=== PATIENT | female | born 1955 | race Caucasian/White ===

== ENCOUNTER 2025-10-13 12:40 | Inpatient (IN) | payer MEDICARE ==
[~2025-10-13] VITALS: Ht 157.5 cm; Wt 81.6 kg
[2025-10-13 16:18] VITALS: BP 121/61; TEMP 98.1
[2025-10-13 16:57] VITALS: BP 121/61; TEMP 98.1
[2025-10-14] MEDS ORDERED: AMIO200T72 PO (15:38)
[2025-10-14] MEDS ORDERED: ASPI81TA31 PO (15:38)
[2025-10-14] MEDS ORDERED: HYDR-3980 PO (15:38)
[2025-10-14] MEDS ORDERED: DIGO250T PO (15:38)
[2025-10-14] MEDS ORDERED: HYDR1VIA2 IV (15:38)
[2025-10-14] MEDS ORDERED: MAG-55 PO (15:38)
[2025-10-14] MEDS ORDERED: SPIR25TA6 PO (15:38)
[2025-10-14] MEDS ORDERED: POLY17PO4 GT (15:38)
[2025-10-14] MEDS ORDERED: APIX5TAB PO (15:38)
[2025-10-14] MEDS ORDERED: AMIO200T6 PO (15:38)
[2025-10-14] MEDS ORDERED: MAGN400O6 PO (15:38)
[2025-10-14] MEDS ORDERED: PANT40TA2 PO (15:38)
[2025-10-14] MEDS ORDERED: ACET-3752 PO ×2 (15:38)
[2025-10-14] MEDS ORDERED: LORA2TAB95 PO (15:38)
[2025-10-14] MEDS ORDERED: METO50TA16 PO (15:38)
[2025-10-14] MEDS ORDERED: METH-806 PO (15:38)
[2025-10-14] MEDS ORDERED: ONDA4VIA5 IVP (15:38)
[2025-10-14] MEDS ORDERED: ATOR10TA PO (15:38)
[2025-10-14] MEDS ORDERED: DOCU100T2 PO (15:38)
[2025-10-14] MEDS: HYDROCODONE/APAP 10-325 MG TABLET PO PRN (17:56)
[2025-10-14] MEDS: METOPROLOL TARTRATE 50 MG TABLET PO SCH (17:56)
[2025-10-14] MEDS ORDERED: LORAZEPAM 1 MG TABLET PO PRN (18:00)
[2025-10-14] MEDS ORDERED: HYDROMORPHONE 1 MG/1 ML DISP.SYRIN IV PRN (18:00)
[2025-10-14] MEDS ORDERED: OXYCODONE HCL 5 MG TABLET PO PRN (18:30)
[2025-10-14] MEDS: GABAPENTIN 100 MG CAPSULE PO SCH (18:36)
[2025-10-14] MEDS: ACETAMINOPHEN 500 MG TABLET PO SCH (18:36)
[2025-10-14] MEDS: ATORVASTATIN 10 MG TABLET PO SCH (21:00)
[2025-10-14] MEDS: AMIODARONE HCL 200 MG TABLET PO SCH (21:00)
[2025-10-14] MEDS: APIXABAN 5 MG TABLET PO SCH (21:03)
[2025-10-14 21:19] VITALS: BP 99/41; TEMP 98.6; O2SAT 98
[2025-10-14] MEDS: OXYCODONE HCL 5 MG TABLET PO PRN (23:44)
[2025-10-15] MEDS: LORAZEPAM 0.5 MG TABLET PO PRN (03:14)
[2025-10-15] MEDS: HYDROMORPHONE 1 MG/1 ML DISP.SYRIN IV PRN (03:35)
[2025-10-15 05:50] VITALS: BP 113/45; TEMP 98.4; O2SAT 100
[2025-10-15] MEDS: PANTOPRAZOLE SODIUM 40 MG TABLET.DR PO SCH (06:28)
[2025-10-15] MEDS: PANTOPRAZOLE SODIUM 40 MG TABLET.DR PO ONE (06:35)
[2025-10-15 08:00] VITALS: BP 132/67; TEMP 98.3; O2SAT 99
[2025-10-15 08:01] LABS: PLATELET COUNT (AUTO) 197 K/uL (179-408); RED CELL DISTRIBUTION WIDTH 13.9 % (12.3-17.7); WHITE BLOOD COUNT (AUTO) 5.2 K/uL (3.8-11.8)
[2025-10-15 08:03] LABS: RED BLOOD CELL COUNT(AUTO) 2.48 MIL/uL (3.63-4.92)
[2025-10-15] MEDS: ASPIRIN 81 MG TAB.CHEW PO SCH (08:07)
[2025-10-15] MEDS: METHOCARBAMOL 500 MG TABLET PO SCH (08:07)
[2025-10-15] MEDS: SPIRONOLACTONE 25 MG TABLET PO SCH (08:07)
[2025-10-15] MEDS: DOCUSATE SODIUM 100 MG CAPSULE PO SCH (08:08)
[2025-10-15 08:26] LABS: CREATININE 0.5 mg/dL (0.6-1.3); SODIUM SERUM 139.0 mmol/L (136-145); UREA NITROGEN, BLOOD 4.0 mg/dL (7-18)
[2025-10-15] MEDS ORDERED: APIXABAN 5 MG TABLET PO SCH (09:00)
[2025-10-15 12:30] VITALS: O2SAT 99
[2025-10-15] MEDS ORDERED: DIGOXIN 250 MCG TABLET PO SCH (13:00)
[2025-10-15 17:00] VITALS: BP 121/44; TEMP 98.3; O2SAT 100
[2025-10-15 20:30] VITALS: BP 79/37; TEMP 98.8; O2SAT 98
[2025-10-15] MEDS: IV NORMAL SALINE 1000 ML BAG IV ONE (20:55)
[2025-10-15 21:05] LABS: PLATELET COUNT (AUTO) 216 K/uL (179-408); RED BLOOD CELL COUNT(AUTO) 2.59 MIL/uL (3.63-4.92); RED CELL DISTRIBUTION WIDTH 14.0 % (12.3-17.7); WHITE BLOOD COUNT (AUTO) 7.1 K/uL (3.8-11.8)
[2025-10-15 21:11] LABS: CREATININE 0.4 mg/dL (0.6-1.3); SODIUM SERUM 138 mmol/L (136-145); UREA NITROGEN, BLOOD 5 mg/dL (7-18)
[2025-10-15 21:30] VITALS: BP 110/46; TEMP 98.7; O2SAT 99
[2025-10-16] VITALS (8 sets, daily range): BP systolic 113–130; BP diastolic 46–65; TEMP 98.4–99.7; O2SAT 96–99
[2025-10-16] MEDS ORDERED: REMEDY ESSENTIAL ZINC PASTE 113 GM TOP PRN ×2 (08:45→09:45)
[2025-10-16] MEDS: MAGNESIUM HYDROXIDE 30 ML LIQUID UDC PO PRN (11:33)
[2025-10-16] MEDS ORDERED: METOPROLOL TARTRATE 50 MG TABLET PO SCH (11:45)
[2025-10-16] MEDS: METOPROLOL TARTRATE 50 MG TABLET PO SCH (17:39)
[2025-10-17 06:36] VITALS: BP 119/57; TEMP 98.4; O2SAT 98
[2025-10-17 08:19] VITALS: BP 125/54; TEMP 99.3; O2SAT 98
[2025-10-17] MEDS: ACETAMINOPHEN 500 MG TABLET PO PRN (13:45)
[2025-10-17 16:00] VITALS: O2SAT 98
[2025-10-17 17:13] VITALS: BP 119/56; TEMP 99.3; O2SAT 98
[2025-10-18 02:06] LABS: FOLATE (FOLIC ACID), SERUM 9.4 ng/mL (>3.0)
[2025-10-18 06:55] VITALS: BP 112/50; TEMP 98.7; O2SAT 98
[2025-10-18 08:02] LABS: PLATELET COUNT (AUTO) 292 K/uL (179-408); RED BLOOD CELL COUNT(AUTO) 2.70 MIL/uL (3.63-4.92); RED CELL DISTRIBUTION WIDTH 14.6 % (12.3-17.7); WHITE BLOOD COUNT (AUTO) 8.4 K/uL (3.8-11.8)
[2025-10-18 08:12] VITALS: BP 113/49; TEMP 98.6; O2SAT 96
[2025-10-18 08:14] LABS: CREATININE 0.4 mg/dL (0.6-1.3); SODIUM SERUM 137 mmol/L (136-145); UREA NITROGEN, BLOOD 8 mg/dL (7-18)
[2025-10-18] MEDS: GLUCERNA SHAKE 237 ML CAN PO SCH (08:56)
[2025-10-18] MEDS: ONDANSETRON 4 MG/2 ML VIAL IV PRN (14:55)
[2025-10-18 15:30] VITALS: BP 121/54; TEMP 98.8; O2SAT 91
[2025-10-18 16:50] LABS: PLATELET COUNT (AUTO) 294 K/uL (179-408); RED BLOOD CELL COUNT(AUTO) 2.72 MIL/uL (3.63-4.92); RED CELL DISTRIBUTION WIDTH 14.5 % (12.3-17.7); WHITE BLOOD COUNT (AUTO) 7.2 K/uL (3.8-11.8)
[2025-10-18 16:58] LABS: CREATININE 0.4 mg/dL (0.6-1.3); SODIUM SERUM 139 mmol/L (136-145); UREA NITROGEN, BLOOD 6 mg/dL (7-18)
[2025-10-18 19:56] VITALS: BP 110/60; TEMP 98.7; O2SAT 98
[2025-10-18] MEDS: HYDROCODONE/APAP 5-325MG TABLET PO PRN (20:32)
[2025-10-18] MEDS: ACETAMINOPHEN 500 MG TABLET PO PRN (22:40)
[2025-10-19 02:40] VITALS: O2SAT 98
[2025-10-19 05:56] VITALS: BP 110/40; TEMP 98.1; O2SAT 96
[2025-10-19 08:06] VITALS: BP 118/52; TEMP 98; O2SAT 98
[2025-10-19 17:18] VITALS: BP 114/60; TEMP 97.8; O2SAT 98
[2025-10-19] MEDS: MAG HYDROX/AL HYDROX/SIMETH 30 ML LIQUID UDC PO PRN (20:27)
[2025-10-19 21:01] VITALS: BP 118/48; TEMP 98.5; O2SAT 98
[2025-10-19] MEDS: HYDROCODONE/APAP 10-325 MG TABLET PO SCH (21:16)
[2025-10-20] MEDS: MIRALAX 17 GM POWD.PACK PO PRN (05:45)
[2025-10-20 05:54] VITALS: BP 110/41; TEMP 98.1; O2SAT 95
[2025-10-20 08:00] VITALS: BP 113/41; TEMP 98.3; O2SAT 98
[2025-10-20 09:51] VITALS: BP 121/51; O2SAT 98
[2025-10-20] MEDS ORDERED: ONDANSETRON HCL 4 MG TABLET PO PRN (11:30)
[2025-10-20 11:47] LABS: PLATELET COUNT (AUTO) 365 K/uL (179-408); RED BLOOD CELL COUNT(AUTO) 2.99 MIL/uL (3.63-4.92); RED CELL DISTRIBUTION WIDTH 14.9 % (12.3-17.7); WHITE BLOOD COUNT (AUTO) 7.7 K/uL (3.8-11.8)
[2025-10-20 12:04] LABS: CREATININE 0.5 mg/dL (0.6-1.3); SODIUM SERUM 137.0 mmol/L (136-145); UREA NITROGEN, BLOOD 9.0 mg/dL (7-18)
[2025-10-20 16:00] VITALS: BP 121/55; TEMP 98; O2SAT 99
[2025-10-20] MEDS: MAG HYDROX/AL HYDROX/SIMETH 30 ML LIQUID UDC PO SCH (17:53)
[2025-10-20 19:52] VITALS: BP 123/57; TEMP 98.4; O2SAT 98
[2025-10-20] MEDS: BISACODYL 10 MG SUPP.RECT RC PRN (20:28)
[2025-10-20 22:15] VITALS: O2SAT 98
[2025-10-21 06:12] VITALS: BP 107/49; TEMP 98.1; O2SAT 98
[2025-10-21 08:00] VITALS: BP 105/56; TEMP 98.5; O2SAT 98
[2025-10-21 13:35] VITALS: BP 100/47; TEMP 98.9; O2SAT 96
[2025-10-21 17:36] VITALS: BP 121/61; TEMP 99; O2SAT 94
[2025-10-21 20:27] VITALS: BP 99/51; TEMP 98.9; O2SAT 95
[2025-10-22 01:50] LABS: *BILIRUBIN,URIN NEGATIVE (NEGATIVE); *CLARITY,URINE CLEAR (CLEAR); *KETONES,URINE NEGATIVE (NEGATIVE); *PROTEIN,URINE NEGATIVE (NEGATIVE); *UROBILINOGEN,URINE 0.2 E.U./dl (NORMAL); LEUKOCYTE ESTERASE ,URINE NEGATIVE (NEGATIVE); NITRITE, URINE NEGATIVE (NEGATIVE); UGLUCOSE NEGATIVE (NEGATIVE)
[2025-10-22 01:52] LABS: *BLOOD, URINE TRACE (NEGATIVE); *COLOR,URINE LIGHT YELLOW (YELLOW)
[2025-10-22 01:58] LABS: SQUAMOUS EPITHELIAL CELL,UR FEW /HPF (NONE SEEN)
[2025-10-22 05:41] VITALS: BP 105/40; TEMP 98.9; O2SAT 95
[2025-10-22] MEDS: AMIODARONE HCL 200 MG TABLET PO SCH (08:20)
[2025-10-22 11:49] VITALS: BP 122/55; TEMP 98.5; O2SAT 95
[2025-10-22] MEDS: LIDOCAINE 5% PATCH TD SCH (12:31)
[2025-10-22] MEDS: PREGABALIN 100 MG CAPSULE PO SCH (15:01)
[2025-10-22 15:14] VITALS: BP 112/58; TEMP 98.5; O2SAT 96
[2025-10-22 19:00] VITALS: BP 99/53; TEMP 98.1; O2SAT 95
[2025-10-23 04:00] VITALS: BP 112/40; TEMP 98.7; O2SAT 93
[2025-10-23 07:39] VITALS: BP 126/41; TEMP 99.3; O2SAT 94
[2025-10-23 16:00] VITALS: BP 109/60; TEMP 98.7; O2SAT 93
[2025-10-23 19:00] VITALS: BP 118/62; TEMP 97.6; O2SAT 94
[2025-10-24 04:00] VITALS: BP 120/58; TEMP 98.3; O2SAT 93
[2025-10-24 07:34] VITALS: BP 123/54; TEMP 98.8; O2SAT 93
[2025-10-24 15:56] VITALS: BP 104/51; TEMP 98.2; O2SAT 94
[2025-10-24 19:45] VITALS: BP 126/63; TEMP 99.4; O2SAT 93
[2025-10-25] VITALS (7 sets, daily range): BP systolic 107–127; BP diastolic 50–67; TEMP 97.6–98.7; O2SAT 92–98
[2025-10-25] MEDS: GLUCERNA SHAKE 237 ML CAN PO SCH (17:38)
[2025-10-26 05:17] VITALS: BP 102/48; TEMP 98.1; O2SAT 97
[2025-10-26 07:46] VITALS: BP 114/56; TEMP 97.7; O2SAT 97
[2025-10-26 12:42] VITALS: BP 110/60; TEMP 97.7; O2SAT 97
[2025-10-26 15:27] VITALS: BP 106/63; TEMP 97.7; O2SAT 97
[2025-10-26 19:00] VITALS: BP 105/62; TEMP 97.8; O2SAT 95
[2025-10-27 04:00] VITALS: BP 110/53; TEMP 98.3; O2SAT 94
[2025-10-27 07:18] LABS: PLATELET COUNT (AUTO) 399 K/uL (179-408); RED BLOOD CELL COUNT(AUTO) 3.11 MIL/uL (3.63-4.92); RED CELL DISTRIBUTION WIDTH 14.9 % (12.3-17.7); WHITE BLOOD COUNT (AUTO) 6.0 K/uL (3.8-11.8)
[2025-10-27 07:36] LABS: ASPARTATE AMINOTRANSFERASE 21.0 U/L (15-37); CREATININE 0.5 mg/dL (0.6-1.3); SODIUM SERUM 136.0 mmol/L (136-145); TOTAL PROTEIN, SERUM 5.2 g/dL (6.4-8.2); UREA NITROGEN, BLOOD 6.0 mg/dL (7-18)
[2025-10-27 10:39] VITALS: BP 147/57; TEMP 98.2; O2SAT 94
== END 2025-10-27 13:40 | disposition home health service (06) | DRG 559 ==
PROVIDERS: ADMIT Physical Medicine & Rehabilitation Pain Medicine; ATTEND Physical Medicine & Rehabilitation Pain Medicine
DX: Z47.89 Encounter for other orthopedic aftercare (principal); I50.23 Acute on chronic systolic (congestive) heart failure; I11.0 Hypertensive heart disease with heart failure; Z79.01 Long term (current) use of anticoagulants; E66.9 Obesity, unspecified; I48.92 Unspecified atrial flutter; M48.55XD Collapsed vertebra, not elsewhere classified, thoracolumbar region, subsequent encounter for fracture with routine healing; I25.10 Atherosclerotic heart disease of native coronary artery without angina pectoris; I25.5 Ischemic cardiomyopathy; Z95.1 Presence of aortocoronary bypass graft; Z98.1 Arthrodesis status; F41.9 Anxiety disorder, unspecified; Z91.81 History of falling; Z90.49 Acquired absence of other specified parts of digestive tract; G89.29 Other chronic pain
CPT/HCPCS: 36415; 71045; 74150; 82746; 83605; 83735; 84100; 84443; 84484; 85025; 87040; 93005; 97535-GO-CO; A9150; J1171; J2405; J7040